=== PATIENT | female | born 1945 | race Caucasian/White ===

== ENCOUNTER 2023-03-12 13:56 | Outpatient (CLI) | payer MEDICARE, OTHER ==
[~2023-03-12] VITALS: Ht 154.9 cm; Wt 53.0 kg
[2023-03-12 14:21] VITALS: BP 178/89; PULSE 79; TEMP 98.5
[2023-03-12] MEDS ORDERED: COZAAR 50MG50 MG/TAB PO (14:24)
[2023-03-12] MEDS ORDERED: TOPROL XL 50MG50 MG PO (14:29)
[2023-03-12] MEDS ORDERED: CLARITIN 1010 MG/TAB PO (14:30)
[2023-03-12] MEDS ORDERED: PROAIR HFA0.09 MG/AC IH (14:30)
[2023-03-12] MEDS ORDERED: LIPITOR 10MG10 MG PO (14:30)
[2023-03-12] MEDS ORDERED: VITAMIN D31000 IU PO (14:31)
[2023-03-12] MEDS ORDERED: COMPLETE MULTI1 TAB PO (14:31)
[2023-03-12] MEDS ORDERED: BENEFIBER PO (14:32)
[2023-03-12] MEDS ORDERED: MAGNESIUM200 MG PO (14:32)
[2023-03-12] MEDS ORDERED: XALATAN EYE DROPS OU (14:32)
[2023-03-12] MEDS ORDERED: PROLIA60 MG/ML SQ (14:33)
--- NOTE | 2023-03-12 15:01 | NUR ---
Pt tolerated prolia without issue. She remained in dept for monitoring after initial injection. She exits at this time with steady gait, escorted out to meet family in waiting room.
== END 2023-03-12 15:02 | disposition home or self-care (01) ==
LOC: EUO 13:56
DX: M81.0 Age-related osteoporosis without current pathological fracture (principal)
CPT/HCPCS: J0897

== ENCOUNTER → 2024-01-19 | Outpatient (CLI) | payer MEDICARE, OTHER ==
[~2024-01-19] MED LIST: BENEFIBER PO; CLARITIN 1010 MG/TAB PO; COMPLETE MULTI1 TAB PO; COZAAR 50MG50 MG/TAB PO; LIPITOR 10MG10 MG PO; MAGNESIUM200 MG PO; PROAIR HFA0.09 MG/AC IH; PROLIA60 MG/ML SQ; TOPROL XL 50MG50 MG PO; VITAMIN D31000 IU PO; XALATAN EYE DROPS OU
== END ==
LOC: MC.RAD 13:14
DX: Z12.31 Encounter for screening mammogram for malignant neoplasm of breast (principal)